=== PATIENT | male | born 1990 | race Caucasian/White ===

== ENCOUNTER 2017-12-19 13:25 | Emergency (ER) ==
[2017-12-19 13:29] VITALS: BP 124/83; TEMP 96.8; BMI 25.0
[2017-12-19] MEDS ORDERED: ZOFRAN 4 MG/2 ML IVP STA (13:43)
[2017-12-19] MEDS ORDERED: SODIUM CHLORIDE 1,000 ML IV STA ×2 (13:43→16:17)
[2017-12-19] MEDS ORDERED: SUBLIMAZE IVP STA ×2 (13:43→13:47)
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
[2017-12-19] MEDS ORDERED: DILAUDID 1 MG/ML SYRINGE IVP STA (14:24)
--- NOTE | 2017-12-19 14:38 | CT ---
EXAM: CT scan of the abdomen and pelvis without contrast HISTORY: Right lower quadrant pain TECHNIQUE: Imaging of the abdomen pelvis was performed without intravenous contrast. 3 mm thin axia l images and coronal and sagittal reconstructions were provided for interpretation. FINDINGS: The liver, spleen, pancreas, adrenal glands and kidneys appear normal. The proximal urete rs are normal size. The small and large bowel loops are normal caliber. There is no free air. No a cute abnormalities are seen within the anterior abdominal wall. The appendix appears normal. The helical images obtained through the pelvis demonstrate a normal appearance of the rectum, urinary bladder. There is no free fluid seen within the pelvis. No retroperitoneal abnormalities are seen. There is a oval noncalcified pulmonary nodule seen in the dependent left lung base seen on axial timoteo ge number 13 measuring 7.8 mm AP maximum. There is a pulmonary nodule seen in the more anterior left lung base seen on axial image #17 measuring 9 mm maximum. Lung bases are otherwise clear. No lytic or blastic lesions are seen within the osseous structures. IMPRESSION: There is no bowel obstruction or acute inflammatory change seen within the abdomen and p fredis. There is no ureteral obstruction. There are two noncalcified pulmonary nodules seen in the left lung base as described above measuring up to 9 mm maximum. A 6-month follow-up CT scan of the chest without contrast can be obtained for fur ther evaluation.
== END 2017-12-19 17:17 | disposition home or self-care (01) ==
LOC: ED 13:25
DX: R10.9 Unspecified abdominal pain (principal); F15.10 Other stimulant abuse, uncomplicated
CPT/HCPCS: 36415; 74176; 80053; 80306; 81001; 82150; 83690; 85025; 96360; 96361; 96375; 99285

== ENCOUNTER 2021-07-22 17:20 | Observation (INO) ==
[2021-07-22] MEDS ORDERED: SODIUM CHLORIDE 1,000 ML IV STA ×3 (17:50→21:30)
[2021-07-22] MEDS ORDERED: TYLENOL PO STA (17:50)
--- NOTE | 2021-07-22 17:57 | ED.PDOC ---
General ED Provider: Dr. FELIPE VALENTINO MD Chief Complaint: Sore Throat Stated Complaint: mild to mod sore throat and diffuse aches today, hx smoking, no covid vaccine, +cough, not short of breath, +NV Time Seen by Provider: 07/22/21 17:45 Mode of Arrival: Walk-In Information Source: Patient Primary Care Provider: SOCORRO RIVERA Nursing and Triage Documentation Reviewed and Agree: Yes Does patient meet sepsis criteria?: Yes If yes, has appropriate treatment been initiated?: Yes System Inflammatory Response Syndrome: Not Applicable Sepsis Protocol: For patient's 13 years and over: Temp is 96.8 and below OR 101 and greater Pulse >90 BPM Resp >20/minute Acutely Altered Mental Status Are patient's symptoms suggestive of a new infection, such as: -Pneumonia -Skin, Soft Tissue -Endocarditis -UTI -Bone, Joint Infection -Implantable Device -Acute Abdominal Infection -Wound Infection -Meningitis -Blood Stream Catheter Infection -Unknown Review of Systems Review Of Systems Constitutional: Reports Malaise; Denies Fever Eyes: Denies Vision change Ears, Nose, Mouth, Throat: Reports Throat pain Respiratory: Reports Cough; Denies Short of air Cardiac: Denies Chest pain GI: Reports Abdominal pain and Vomiting : Denies Flank pain Musculoskeletal: Denies Back pain Skin: Denies Rash or Cyanosis Neurological: Denies Cognitive dysfunction All Other Systems: Other Physical Exam Physical Exam Appearance: Reports Ill-appearing Ill-appearing: Mild Pain Distress: Mild Eyes: Reports JIMBO, EOMI and Conjunctiva clear ENT: Reports Nose normal and Oropharynx normal Neck: Supple Respiratory: Reports Airway patent, Breath sounds clear and Breath sounds equal Cardiovascular: Reports Tachycardia GI/: Reports Soft and Nontender (no rebound) Musculoskeletal: Reports ROM intact Skin: Reports Warm and Dry Neurological: Reports Cranial nerves intact, Alert and Oriented Psychiatric: Reports Affect appropriate Critical Care Note Critical Care Note Total Critical Care Time (mins): 0 Course Course Hematology/Chemistry: 07/22/21 18:10 07/22/21 18:10 Orders, Labs, Meds: Lab Review 07/22/21 07/22/21 07/22/21 18:10 18:10 18:10 WBC 19.34 H RBC 5.91 Hgb 16.8 Hct 49.2 MCV 83.2 MCH 28.4 MCHC 34.1 RDW Coeff of Carlos 12.4 Plt Count 254 Immature Gran % (Auto) 0.6 Neut % (Auto) 89.2 H Lymph % (Auto) 4.1 L [place] % (Auto) 6.0 Eos % (Auto) 0.0 Baso % (Auto) 0.1 Neut # (Auto) 17.2 H Lymph # (Auto) 0.8 [place] # (Auto) 1.2 Eos # (Auto) 0.0 Baso # (Auto) 0.0 Immature Gran # (Auto) 0.1 Sodium 137.2 Potassium 3.71 Chloride 99.0 Carbon Dioxide 25.9 Anion Gap 16.01 BUN 10.9 Creatinine 0.90 Estimated GFR (MDRD) 100.00 BUN/Creatinine Ratio 12.11 Glucose 109.5 H Lactic Acid 2.15 H Calcium 9.11 Total Bilirubin 0.60 AST 37.6 ALT 64.3 H Alkaline Phosphatase 113.5 Troponin I < 0.012 Total Protein 7.91 Albumin 4.66 Globulin 3.25 Albumin/Globulin Ratio 1.43 D-Dimer 07/22/21 18:10 WBC RBC Hgb Hct MCV MCH MCHC RDW Coeff of Carlos Plt Count Immature Gran % (Auto) Neut % (Auto) Lymph % (Auto) [place] % (Auto) Eos % (Auto) Baso % (Auto) Neut # (Auto) Lymph # (Auto) [place] # (Auto) Eos # (Auto) Baso # (Auto) Immature Gran # (Auto) Sodium Potassium Chloride Carbon Dioxide Anion Gap BUN Creatinine Estimated GFR (MDRD) BUN/Creatinine Ratio Glucose Lactic Acid Calcium Total Bilirubin AST ALT Alkaline Phosphatase Troponin I Total Protein Albumin Globulin Albumin/Globulin Ratio D-Dimer 367.61 Orders Category Date Time Status EKG-(ED ONLY) Stat CARDIO 07/22/21 17:50 Completed BLOOD CULTURE Stat LAB 07/22/21 18:21 Received CBC W/ AUTO DIFF Stat LAB 07/22/21 18:10 Completed CMP [COMPREHENSIVE METABOLIC PANEL] Stat LAB 07/22/21 18:10 Completed D-DIMER Stat LAB 07/22/21 18:10 Completed DRUG SCREEN (RAPID FOR ED) [DRUG SCREEN, URINE, RAPID] LAB 07/22/21 17:50 Uncollected Stat LACTIC ACID Stat LAB 07/22/21 18:10 Completed RAPID STREP SCREEN [MOLECULAR GROUP A STREP] Stat LAB 07/22/21 18:44 Received RESPIRATORY PANEL 2.1 (PCR) Stat LAB 07/22/21 18:25 Received TROPONIN I Stat LAB 07/22/21 18:10 Completed UA [URINALYSIS C & S IF INDICATED] Stat LAB 07/22/21 17:50 Uncollected Acetaminophen [Tylenol] MEDS 07/22/21 17:50 Discontinued 650 mg PO ONCE STA Piperacillin Sodium/Tazobactam [Zosyn 3.375 gm] 3.375 MEDS 07/22/21 18:21 Active gm 0.9 % Sodium Chloride [Sodium Chloride] 50 ml IV ONCE Sodium Chloride 0.9% [Sodium Chloride] 1,000 ml MEDS 07/22/21 17:50 Discontin ued IV BOLUS CHEST, 1V AP ONLY Stat RADS 07/22/21 17:[address] ABDOMEN/PELVIS WO CONTRAST Stat RADS 07/22/21 17:50 Taken Medications Generic Name Dose Route Start Last Admin Trade Name Freq PRN Reason Stop Dose Admin Piperacillin Sod/Tazobactam 50 mls @ 50 mls/hr 07/22/21 18:21 07/22/21 18:49 Sod 3.375 gm/ Sodium Chloride IV 07/22/21 19:20 50 mls/hr ONCE ONE Administration Discontinued Medications Generic Name Dose Route Start Last Admin Trade Name Freq PRN Reason Stop Dose Admin Acetaminophen 650 mg 07/22/21 17:50 07/22/21 18:04 Acetaminophen 325 Mg Tablet PO 07/22/21 17:51 650 mg ONCE STA Administration Sodium Chloride 1,000 mls @ 1,000 mls/hr 07/22/21 17:50 07/22/21 18:04 Sodium Chloride IV 07/22/21 18:49 1,000 mls/hr BOLUS STA Administration Vital Signs: Temp Pulse Resp BP Pulse Ox 07/22/21 17:45 98.8 F 151 H 17 116/90 98 Discharge Plan Discharge Prescriptions: No Action No Reported Medications 0 Qty: 0 0RF ED Provider: FELIPE VALENTINO Physician Progress Note: care to Dr Rodriguez at 19:00 []
[2021-07-22 18:15] LABS: BASOPHILS % (AUTO) 0.1 % (0.0-3.0); HEMATOCRIT 49.2 % (42.0-52.0); HEMOGLOBIN 16.8 g/dl (14.0-18.0); IMMATURE GRANULOCYTE # (AUTO) 0.1 (0.0-1.0); IMMATURE GRANULOCYTE % (AUTO) 0.6 % (0.0-5.0); LYMPHOCYTES # (AUTO) 0.8 K/uL (0.60-3.4); LYMPHOCYTES % (AUTO) 4.1 (10.0-50.0); MEAN CORPUSCULAR HEMOGLOBIN 28.4 pg (27.0-31.0); MEAN CORPUSCULAR HGB CONC 34.1 (31.8-35.4); MEAN CORPUSCULAR VOLUME 83.2 fl (80.0-94.0); MONOCYTES # (AUTO) 1.2 K/uL (0.4-2.0); NEUTROPHILS # (AUTO) 17.2 K/ul (2.0-6.9); NEUTROPHILS % (AUTO) 89.2 % (42.2-75.2); PLATELET COUNT 254 10^3/uL (140-440); RDW COEFFICIENT OF VARIATION 12.4 % (11.6-14.8); RED BLOOD COUNT 5.91 10^6/ul (4.70-6.10); WHITE BLOOD COUNT 19.34 K/ul (4.2-10.2)
[2021-07-22] MEDS ORDERED: ZOSYN 3.375 GM 3.375 GM in SODIUM CHLORIDE 50 ML IV ONE (18:21)
[2021-07-22 18:29] LABS: ALANINE AMINOTRANSFERASE 64.3 U/L (0-50); ALBUMIN 4.66 g/dL (3.5-5.0); ALKALINE PHOSPHATASE 113.5 U/L (38-126); ASPARTATE AMINO TRANSFERASE 37.6 U/L (17-59); BLOOD UREA NITROGEN 10.9 mg/dL (9-20); CALCIUM 9.11 mg/dL (8.4-10.2); CARBON DIOXIDE 25.9 mmol/L (22-30.0); GLUCOSE 109.5 mg/dL (74-106); POTASSIUM 3.71 mmol/L (3.5-5.1); SODIUM 137.2 mmol/L (134.5-145); TOTAL PROTEIN 7.91 g/dL (6.3-8.2)
[2021-07-22 18:42] LABS: TROPONIN I < 0.012 ng/ml (0.0000-0.120)
--- NOTE | 2021-07-22 18:43 | DI ---
EXAM: One-view chest. HISTORY: Cough. COMPARISON: None. FINDINGS: There are increased patchy opacities present within the right upper lobe and left lung bas e. The remaining lungs are clear. The cardiac silhouette is normal. There is no pulmonary edema identified. No acute abnormality invo lving the osseous structures. IMPRESSION: Bilateral, multi focal pneumonia. There is no pleural effusion.
[2021-07-22 18:49] LABS: BORDETELLA PARAPERTUSSIS (PCR) NOT DETECTED (NOT DETECT); BORDETELLA PERTUSSIS (PCR) NOT DETECTED (NOT DETECT); CHLAMYDIA PNEUMONIAE (PCR) NOT DETECTED (NOT DETECT); CORONAVIRUS 229E (PCR) NOT DETECTED (NOT DETECT); CORONAVIRUS HKU1 (PCR) NOT DETECTED (NOT DETECT); CORONAVIRUS NL63 (PCR) NOT DETECTED (NOT DETECT); CORONAVIRUS OC43 (PCR) NOT DETECTED (NOT DETECT); HUMAN RHINOVIRUS/ENTEROV (PCR) NOT DETECTED (NOT DETECT); INFLUENZA B (PCR) NOT DETECTED (NOT DETECT); MYCOPLASMA PNEUMONIAE (PCR) NOT DETECTED (NOT DETECT); PARAINFLUENZA VIRUS 1 (PCR) NOT DETECTED (NOT DETECT); PARAINFLUENZA VIRUS 2 (PCR) NOT DETECTED (NOT DETECT); PARAINFLUENZA VIRUS 3 (PCR) NOT DETECTED (NOT DETECT); PARAINFLUENZA VIRUS 4 (PCR) NOT DETECTED (NOT DETECT); RESPIRATORY SYNCYTIAL V (PCR) NOT DETECTED (NOT DETECT); SARS_COV_2 (PCR) NOT DETECTED (NOT DETECT)
--- NOTE | 2021-07-22 19:03 | CT ---
EXAM: CT of the abdomen pelvis without contrast History: Abdominal pain and vomiting. Comparison: CT abdomen and pelvis 42,[id number] Technique: Multiplanar CT images through the abdomen pelvis were obtained without the administration of IV contrast Findings: Bibasilar lung infiltrates. No acute osseous abnormalities. Status post cholecystectomy. No liver or splenic lesions. 2 mm calculus within the right kidney. N o left renal calculi. No hydronephrosis and no ureteral calculi. No bladder wall thickening. No pe ripancreatic inflammation. Adrenal glands are unremarkable. No free air and no ascites. Prostate i s not enlarged. No lymphadenopathy. No abdominal aortic aneurysm. The appendix is normal. No rik l obstruction. Impression: 1. No acute intra-abdominal or pelvic process. 2. Nonobstructing right nephrolithiasis. 3. Bibasilar pneumonia All CT scans are performed using dose optimization techniques as appropriate to the performed exam an d include at least one of the following: Automated exposure control, adjustment of the mA and/or kV according t o size, and the use of iterative reconstruction technique.
[2021-07-22] MEDS ORDERED: TORADOL IM ONE (19:31)
[2021-07-22 19:37] LABS: ADENOVIRUS (PCR) NOT DETECTED (NOT DETECT); HUMAN METAPNEUMOVIRUS (PCR) DETECTED (NOT DETECT)
[2021-07-22] MEDS ORDERED: ZOFRAN 4 MG/2 ML ONE (19:51)
[2021-07-22] MEDS ORDERED: ZOFRAN 4 MG/2 ML IVP ONE ×2 (19:53→21:30)
[2021-07-22] MEDS ORDERED: TYLENOL PO ONE (21:30)
[2021-07-22] MEDS ORDERED: ZITHROMAX PO SCH (22:30)
[2021-07-22] MEDS ORDERED: ZOFRAN 4 MG/2 ML IVP PRN (22:37)
[2021-07-22 22:40] VITALS: BMI 28.3
[2021-07-22] MEDS: MORPHINE 2 MG/ML VIAL IVP PRN (22:59)
[2021-07-22 23:41] LABS: BILIRUBIN,URINE Negative (NEGATIVE); CLARITY,URINE Clear (CLEAR); COLOR,URINE Yellow (YELLOW); GLUCOSE, URINE (UA) Negative (NEGATIVE); KETONES,URINE Trace (NEGATIVE); LEUKOCYTE ESTERASE ,URINE Negative (NEGATIVE); NITRITE,URINE Negative (NEGATIVE); PROTEIN,URINE Trace (NEGATIVE); URINE, BLOOD Negative (NEGATIVE); UROBILINOGEN,URINE 0.2 (0.2)
[2021-07-22 23:51] LABS: AMORPHOUS SEDIMENT,UR TRACE (NOT PRESENT); MUCUS,URINE 2+ (NOT PRESENT); URINE RBC, MICROSCOPIC 0-2 (0-2); URINE WBC, MICROSCOPIC 0-2 (0-2)
[2021-07-22 23:52] LABS: AMPHETAMINE SCREEN,URINE POSITIVE (NEGATIVE); BARBITURATE SCREEN,URINE NEGATIVE (NEGATIVE); BENZODIAZEPINES SCREEN,URINE NEGATIVE (NEGATIVE); CANNABINOID SCREEN,URINE NEGATIVE (NEGATIVE); COCAIN SCREEN,URINE NEGATIVE (NEGATIVE); METHADONE URINE SCREEN NEGATIVE (NEGATIVE); METHAMPHETAMINES SCREEN,URINE POSITIVE (NEGATIVE); OPIATE SCREEN,URINE POSITIVE (NEGATIVE); OXYCODONE URINE SCREEN NEGATIVE (NEGATIVE); PHENCYCLIDINE SCREEN,URINE NEGATIVE (NEGATIVE); PROPOXYPHENE URINE SCREEN NEGATIVE (NEGATIVE); TRICYCLIC ANTIDEPRESSANTS URIN NEGATIVE (NEGATIVE)
[2021-07-23 05:02] LABS: ANISOCYTOSIS NOT PRESENT (NOT PRESENT); HEMATOCRIT 43.8 % (42.0-52.0); HEMOGLOBIN 14.5 g/dl (14.0-18.0); MEAN CORPUSCULAR HEMOGLOBIN 27.9 pg (27.0-31.0); MEAN CORPUSCULAR HGB CONC 33.1 (31.8-35.4); MEAN CORPUSCULAR VOLUME 84.2 fl (80.0-94.0); PLATELET COUNT 206 10^3/uL (140-440); RDW COEFFICIENT OF VARIATION 12.9 % (11.6-14.8); WHITE BLOOD COUNT 16.13 K/ul (4.2-10.2)
[2021-07-23 05:17] LABS: ALANINE AMINOTRANSFERASE 49.8 U/L (0-50); ALBUMIN 3.66 g/dL (3.5-5.0); ALKALINE PHOSPHATASE 81.2 U/L (38-126); ASPARTATE AMINO TRANSFERASE 26.3 U/L (17-59); BILIRUBIN,TOTAL 0.62 mg/dL (0.2-1.3); BLOOD UREA NITROGEN 13.4 mg/dL (9-20); CALCIUM 8.18 mg/dL (8.4-10.2); CHLORIDE 104.1 mmol/L (98-107); CREATININE 0.98 mg/dL (0.60-1.10); GLUCOSE 101.7 mg/dL (74-106); POTASSIUM 4.06 mmol/L (3.5-5.1); SODIUM 138.8 mmol/L (134.5-145); TOTAL PROTEIN 6.49 g/dL (6.3-8.2)
[2021-07-23] MEDS: ROCEPHIN 1 GM/50 ML D5W 1 GM/50 ML BAG IV SCH (08:57)
[2021-07-23] MEDS: MORPHINE 2 MG/ML VIAL IVP PRN ×2 (08:57→17:45)
[2021-07-23] MEDS ORDERED: ALBUTEROL 0.083% NEB NEB PRN (09:48)
[2021-07-23] MEDS ORDERED: TORADOL IVP PRN (09:52)
--- NOTE | 2021-07-23 09:57 | PCM.PROG ---
Date Seen by Provider: 07/23/21 Time Seen by Provider: 09:54 Subjective: Pt admitted for bilateral pneumonia. Still with some SOB, cough and headache. Overall doing slightly better than when admitted last night Objective: Vitals: T=98.5 F, P=95, R=18, KO=780/71, SPO2=97 HEENT: N/A Lungs: Mild rales bilaterally CVS: RRR Abdomen: soft, NT Neurological: no focal findings Lab/Tests/Diagnostic Imaging: WBC on admission 16. Plan: 1. Pneumonia: Continue antibiotics. Add decadron and nebulirers to help with sxs. Will recheck labs in AM to assure improvement. 2. Headache: Likely from coughing. Will give Toradol 30mg IV Q6 hours prn 3. Dispo planning: Likely able to be discharged tomorrow.
[2021-07-23] MEDS: DECADRON IVP SCH ×2 (10:24→20:41)
[2021-07-23] MEDS ORDERED: ZITHROMAX PO SCH (21:00)
[2021-07-24 05:06] LABS: ANISOCYTOSIS NOT PRESENT (NOT PRESENT)
[2021-07-24 07:23] LABS: BLOOD UREA NITROGEN 12.5 mg/dL (9-20); CARBON DIOXIDE 22.1 mmol/L (22-30.0); CHLORIDE 103.7 mmol/L (98-107); POTASSIUM 4.16 mmol/L (3.5-5.1); SODIUM 139.4 mmol/L (134.5-145)
[2021-07-24 07:24] LABS: ALANINE AMINOTRANSFERASE 43.5 U/L (0-50); ALBUMIN 4.37 g/dL (3.5-5.0); ALKALINE PHOSPHATASE 91.9 U/L (38-126); ASPARTATE AMINO TRANSFERASE 29.5 U/L (17-59); BILIRUBIN,TOTAL 0.34 mg/dL (0.2-1.3); CALCIUM 9.46 mg/dL (8.4-10.2); CREATININE 0.74 mg/dL (0.60-1.10); GLUCOSE 178.5 mg/dL (74-106); TOTAL PROTEIN 7.9 g/dL (6.3-8.2)
[2021-07-24] MEDS: ROCEPHIN 1 GM/50 ML D5W 1 GM/50 ML BAG IV SCH (08:55)
[2021-07-24] MEDS: DECADRON IVP SCH (09:45)
[2021-07-24 09:58] LABS: HEMATOCRIT 44.5 % (42.0-52.0); HEMOGLOBIN 14.8 g/dl (14.0-18.0); MEAN CORPUSCULAR HGB CONC 33.3 (31.8-35.4); MEAN CORPUSCULAR VOLUME 84.3 fl (80.0-94.0); PLATELET COUNT 306 10^3/uL (140-440); RDW COEFFICIENT OF VARIATION 12.7 % (11.6-14.8); RED BLOOD COUNT 5.28 10^6/ul (4.70-6.10)
[2021-07-24 14:24] VITALS: BP 142/85; TEMP 97.8
== END 2021-07-24 17:13 | disposition home or self-care (01) ==
LOC: ED 17:20 → MEDSURG A 21:21 → INTOOBSV 21:21 → MEDSURG A 22:20
PROVIDERS: ADMIT Emergency Medicine; ATTEND Emergency Medicine
DX: R11.2 Nausea with vomiting, unspecified; R07.0 Pain in throat; J18.9 Pneumonia, unspecified organism; Z20.822 Contact with and (suspected) exposure to COVID-19